=== PATIENT | male | born 1940 | race Caucasian/White ===

== ENCOUNTER 2017-02-22 02:34 | Observation (INO) | payer MEDICARE ==
--- NOTE | ~2017-02-22 | HP ---
History And Physical [place] [id number] [facility] [place]. [address] NAME: DESIREE BROWN : 40 STATUS : ADM Ej PAT#: [id number] AGE: 76 ADM/REG DATE : 02/22/17 MR#: [id number] REPORT SERV DATE: 02/22/17 DICTATED BY: MARY ANN BINGHAM DATE: 02/22/17 REPORT STATUS : Draft TRANSCRIBED BY: MODL DATE: 02/22/17 DATE OF ADMISSION: 02/22/2017 FOREIGN POLICY OFFICER: Dr. Jese Hartman. ROASTER HELPER: Josué Leslie M.D. CHIEF COMPLAINT: Chest pain similar to previous cardiac event with exertional component. HISTORY OF PRESENT ILLNESS: A very pleasant 76-year-old white gentleman with known history of CAD status post TX, and stent placed to LAD in 2002, and BMS to RCA 2008 with ICM. EF of 35% by echo, presents to our facility with chest discomfort. He states that since October 2016, he has experienced episodic chest pain occurring every two weeks that has become more frequent. On 02/21/2017 around 2100 hours, he describes "ache" in his mid chest that radiated up to his throat that worsens with exertion. He denies any shortness of breath, nausea, diaphoresis, dizziness, or belching. He states he did use his inhaler which seemed to help briefly. At its most intense, he rates the chest discomfort a 2/10. At the time of interview in the Short-Stay, he is pain free. Again, he reports these symptoms as similar, but less intense to his previous cardiac events. The patient confirms a personal history of one heart attack. Denies history of stroke, DVT, or pulmonary embolus. The patient denies any recent fever or chills. States he has never been aware of palpitations or his atrial fibrillation. No syncopal events. Denies PND or orthopnea. The patient does confirm a shock delivered by his AICD approximately in June 2016 for which he did not seek an evaluation and none since. Of note, the patient is taking Eliquis 2.5 mg twice daily, but prescribed 5 mg twice daily. The patient states the cost has been prohibitive for him for him and his current supply of Eliquis 2.5 twice daily is from samples from his PCP. He does state he has a prescription for the 5 mg twice daily, which he will resume in the next couple of days. We will ask Case Management to ask the pharmaceutical company for drug assistance. PAST MEDICAL HISTORY: 1. CAD. a. Status post denies. b. Stent to LAD in 2012. c. BMS to RCA in 2008. d. ICM. EF of 35% by echo. e. AICD placed in 2009 with generator replaced in 2014 ([facility]). 2. PAF status post DANNI cardioversion, 07/2016, on Eliquis. 3. AODM. 4. Hypertension. 5. Dyslipidemia. 6. Sinus and allergies. 7. Remote tobacco abuse. 8. Positive family history for early CAD. History And Physical [address] [address] NAME: DESIREE BROWN : 40 STATUS : ADM Ej PAT#: [id number] AGE: 76 ADM/REG DATE : 02/22/17 MR#: [id number] REPORT SERV DATE: 02/22/17 DICTATED BY: MARY ANN BINGHAM DATE: 02/22/17 REPORT STATUS : Draft TRANSCRIBED BY: YEYO DATE: 02/22/17 PAST SURGICAL HISTORY: 1. AICD in 2009 with generator replaced in 2014. 2. Right total knee. 3. Right elbow reconstruction. 4. Cataracts. SOCIAL HISTORY: He is with two children. He is a retired industrial maintenance electrician, but works in a woodwork shop and a [employer] during the summer, does not have a structured exercise routine. Quit smoking 40 years ago. Rarely consumes alcohol. Denies illicits. FAMILY HISTORY: Father at 65 of a heart attack. Sister at 42 of a heart attack. Brother at 78 of a heart attack. The patient is one of nineteen children. REVIEW OF SYSTEMS: A 14-point review of systems performed, significant for HPI including a dentures and multiple bruises on his forearms and extremities. Otherwise complete review of systems obtained and negative. ALLERGIES: MULTIPLE. PLEASE SEE THE LIST. ALLERGIES ARE BEE VENOM, ANAPHYLAXIS; PENICILLIN, RASH; MORPHINE, RASH; CODEINE, RASH; CECLOR, RASH; NEOMYCIN; BACITRACIN; AND POLYMYXIN, RASH. HOME MEDICATIONS: Ventolin inhaler p.r.n., Eliquis 2.5 mg twice daily (prescribed 5 mg twice daily), aspirin 81 mg daily, Caltrate 600 mg daily, carvedilol 25 mg twice daily, cinnamon oil daily, Flonase daily, Synthroid 137 mcg daily, Prinivil 2.5 mg daily, Glucophage 500 mg daily, Singulair 10 mg daily, multivitamin daily, Aleve p.r.n., fish oil 1200 mg daily, pravastatin 40 mg daily, Aldactone 25 mg daily, and Anoro Ellipta 1 puff daily, and garlic daily. PHYSICAL EXAMINATION: BLOOD PRESSURE: Bilateral blood pressures on arrival, right 122/82, left 120/70, this morning 107/71. PULSE: 72, RESPIRATORY RATE: 16, TEMPERATURE: 97.7, O2 saturation 96% on room air. HEIGHT: 5 feet 8 inches. WEIGHT: 174 pounds. BMI of 26.4. GENERAL: Cooperative, in no apparent distress. HEENT: Pupils 2 mm, sclera nonicteric. Nares patent. Moist mucous membranes. No xanthelasma. NECK: Trachea midline, no thyromegaly. No JVD. No bruits. LYMPH: No cervical lymphadenopathy. No supraclavicular lymphadenopathy. RESPIRATORY: Unlabored respirations. Breath sounds clear bilaterally to posterior auscultation. No wheezes or rhonchi. CARDIOVASCULAR: Regular rate. No murmur, rub or gallop appreciated. EXTREMITIES: Multiple bruises noted on forearms. ABDOMEN: Soft, nontender, nondistended, normal bowel sounds auscultated throughout. No organomegaly. SKIN: Warm, dry extremities. No pallor, or cyanosis. PSYCHIATRIC: Appropriate affect. Alert, oriented x3. History And Physical [address] [address] NAME: DESIREE BROWN : 40 STATUS : ADM Ej PAT#: [id number] AGE: 76 ADM/REG DATE : 02/22/17 MR#: [id number] REPORT SERV DATE: 02/22/17 DICTATED BY: MARY ANN BINGHAM DATE: 02/22/17 REPORT STATUS : Draft TRANSCRIBED BY: YEYO DATE: 02/22/17 LABORATORY DATA: Troponin less than 0.02 twice. Potassium 4.3, BUN 26, creatinine 1.25, glucose 200, and magnesium 2.0. WBC 8.2, hemoglobin 14.8, hematocrit 41.4, and platelet count 149,000. EKG; poor baseline, appears ventricular paced, most likely underlying atrial fibrillation, inferior Q-waves. Echo, 2011: Moderate to severe LV dysfunction with anterior septal and apical HK, EF of 35%. MPI, 2009: Julien stage 3, 8:40 minutes, 10 METS, large fixed defect with mild aleksander-infarct ischemia. Carotid ultrasound, 06/2016: Grade 1 disease bilaterally. ASSESSMENT AND PLAN: 1. Substernal chest pain similar to previous cardiac events. The patient will be held n.p.o. for probable MPI today. We will interrogate device to make sure functioning within normal limits, given palpitations and to check function of AICD. The patient will be discharged home if negative stress test. If anything suggestive of ischemia, Cardiology referral will be initiated. Otherwise, the patient will be asked to follow up with the PCP and Dr. Hartman as appropriate. 2. AICD. Appears to be underlying atrial fibrillation with ventricular paced rhythm. Interrogate device. The patient reports no shocks since 1025. 3. Coronary artery disease with ICM. Continue home medications. 4. Adult onset diabetes mellitus. Hold metformin level 1 sliding scale correction. 5. Hypertension. Monitor blood pressure and continue home medications. 6. Dyslipidemia. Continue statin. 7. NOAC. Currently on Eliquis 2.5 twice daily (samples from PCP). The patient is prescribed 5 mg twice daily. He will resume that dose, but we will ask Case Management to assist with Pharmaceutical Assist Program. 8. No nitroglycerin available. Script provided at discharge. Education on use and storage at bedside. MOIRA/YEYO Mary Ann Bingham, IVORY, SAFE TECHNICIAN-BC / [id number] CC: Mary Ann Bingham, IVORY, SAFE TECHNICIAN-BC Alyssa Chapman M.D.
[2017-02-22 01:02] LABS: BASOPHILS 0.1 %; BASOPHILS ABSOLUTE 0.01 10/3/uL (0.0-0.16); EOSINOPHILS 2.1 %; EOSINOPHILS ABSOLUTE 0.17 10/3/uL (0.0-0.53); ER CBC TAT 0 Hrs 09 Mins; HEMATOCRIT 41.4 % (40.0-51.0); HEMOGLOBIN 14.8 g/dL (13.6-17.8); IMMATURE GRANULOCYTES 0.2 %; IMMATURE GRANULOCYTES ABSOLUTE 0.02 10/3/uL (0.0-0.11); LYMPHOCYTES 25.7 %; MANUAL DIFF NO %; MEAN CORPUS HGB CONC 35.7 g/dL (32.0-36.0); MEAN CORPUSCULAR HEMOGLOB 31.5 pg (26.0-34.0); MEAN CORPUSCULAR VOLUME 88.1 fL (80-100); MEAN PLATELET VOLUME 11.2 fL (9.2-13.0); MONOCYTES 11.5 %; MONOCYTES ABSOLUTE 0.94 10/3/uL (0.21-1.20); NEUTROPHILS 60.4 %; NEUTROPHILS ABSOLUTE 4.93 10/3/uL (2.02-8.40); PLATELET COUNT 149 10/3/uL (150-400); RBC DISTRIBUTION WIDTH 12.5 % (12.0-16.0); WHITE BLOOD CELLS 8.2 10/3/uL (4.5-10.5)
[2017-02-22 01:09] LABS: INTERNATIONAL NORMAL RATI 1.2 UNITS (-); PARTIAL THROMBO TIME 26.9 SEC (22.5-37.2); PROTIME (NOT ORD) 14.8 SEC (12.0-14.5)
[2017-02-22 01:18] LABS: CALCIUM, SERUM 8.8 MG/DL (8.5-10.4); CHEST PAIN PROFILE TAT 0 Hrs 25 Mins; CHLORIDE, SERUM 106 MMOL/L (96-112); CO2 (CARBON DIOXIDE) 26 MMOL/L (24-34); CREATININE 1.25 MG/DL (0.70-1.30); GFR AFRICAN AMERICAN 64 ML/MIN (>=60); GFR NON AFRICAN AMERICAN 56 ML/MIN (>=60); SODIUM, SERUM 138 MMOL/L (135-148); TROPONIN I <0.02 NG/ML (<0.05)
[2017-02-22 01:21] LABS: BUN (BLOOD UREA NITROGEN) 26 MG/DL (6-23); GLUCOSE, SERUM 200 MG/DL (60-99); POTASSIUM, SERUM 4.3 MMOL/L (3.5-5.3)
[~2017-02-22 02:34] MED LIST: ASAB PO; BL FLAX SEED1000 MG OR; C5; CENTRUM TAB1 TAB PO; CINNAMONPO PO; COREG25 PO; COREG6 PO; ELIQUIS 5 MG TAB5 MG PO; FISH-EPA1000 MG PO; FLAXSEED OIL1000 MG PO; FOLBEE PO; GARLIC; GARLIC PO; GLUCPH PO; LEVOTHROID137 MCG PO; LEVOTHYROXIN137 MCG PO; MULTIPLE VIT PO; NORCO1 TA1 PO; OSTEO BI-FLEX1 EACH PO; OSTEO BI-FLX PO; PR25 PO; PRAVACHOL40 MG PO; PRIN10 PO; PROMEGA PO; SPIRO25 PO; SYN112 PO; ULTRAM50 PO; VITE PO; ZESTRIL2.5 MG PO
[2017-02-22] MEDS ORDERED: VENTOLIN HFA INH (03:14)
[2017-02-22] MEDS ORDERED: GLUCPH PO (03:14)
[2017-02-22] MEDS ORDERED: SINGULAIR1 PO (03:14)
[2017-02-22] MEDS ORDERED: PRIN2.5 PO (03:15)
[2017-02-22] MEDS ORDERED: ANOROELLIPTA INH (03:15)
[2017-02-22] MEDS ORDERED: COREG25 PO (03:15)
[2017-02-22] MEDS ORDERED: PRAVACHOL40 MG PO (03:16)
[2017-02-22] MEDS ORDERED: FLONASE NAS (03:16)
[2017-02-22] MEDS ORDERED: SPIRO25 PO (03:16)
[2017-02-22] MEDS ORDERED: ELIQUIS 5 MG TAB5 MG PO (03:17)
[2017-02-22] MEDS ORDERED: SYNTHROID137 MCG PO (03:17)
[2017-02-22] MEDS ORDERED: HALF81 PO (03:17)
[2017-02-22] MEDS ORDERED: CENTRUM PO (03:18)
[2017-02-22] MEDS ORDERED: ALEVE220 MG PO (03:18)
[2017-02-22] MEDS ORDERED: FISH-EPA1000 MG PO (03:18)
[2017-02-22] MEDS ORDERED: GARLIC 1000MG OTC PO (03:19)
[2017-02-22] MEDS ORDERED: CINNAMONPO PO (03:19)
[2017-02-22] MEDS ORDERED: CALTRAT600 PO (03:19)
[2017-04-05] MEDS ORDERED: BL FLAX SEED1000 MG PO (08:03)
[2017-04-05] MEDS ORDERED: POTASSIUM OTC PO (08:03)
[2017-04-05] MEDS ORDERED: [UNRECOGNIZED DRUG - OTHER] PO (08:18)
[2017-04-05] MEDS ORDERED: STEROID SHOT (08:18)
[2017-04-27] MEDS ORDERED: VITC500 PO (12:56)
[2017-04-27] MEDS ORDERED: LIPITOR40 PO (12:58)
[2017-04-27] MEDS ORDERED: JANTOVEN5 MG PO (12:58)
[2017-04-27] MEDS ORDERED: COREG3 PO (12:58)
[2017-04-27] MEDS ORDERED: P5 PO (12:59)
[2017-04-27] MEDS ORDERED: ULTRAM50 PO (13:00)
== END 2017-02-22 19:05 | disposition home or self-care (01) ==
LOC: ER 02:34 → SSU1 02:56
PROVIDERS: Emergency Medicine
DX: R07.2 Precordial pain (principal); I25.10 Atherosclerotic heart disease of native coronary artery without angina pectoris; I25.5 Ischemic cardiomyopathy; E11.8 Type 2 diabetes mellitus with unspecified complications; I48.0 Paroxysmal atrial fibrillation; I10 Essential (primary) hypertension; E78.5 Hyperlipidemia, unspecified; Z87.891 Personal history of nicotine dependence; Z82.49 Family history of ischemic heart disease and other diseases of the circulatory system; Z98.890 Other specified postprocedural states; Z88.0 Allergy status to penicillin; Z88.5 Allergy status to narcotic agent; Z88.8 Allergy status to other drugs, medicaments and biological substances; Z79.82 Long term (current) use of aspirin; Z79.899 Other long term (current) drug therapy
CPT/HCPCS: 71020; 78452; 80048; 82962; 83735; 84484; 85025; 85610; 85730; 93005; 93017; 93288; 99285; A9270-GY; A9502; C8929; G0378; J0153; Q9957